=== PATIENT | male | born 1955 | race Caucasian/White ===

== ENCOUNTER 2023-12-14 10:07 | Outpatient (CLI) | payer MEDICARE ==
[2023-12-14] MEDS ORDERED: Iopamidol 370 76% 100 ML VIAL ONE (12:15)
== END 2023-12-14 10:08 | disposition home or self-care (01) ==
LOC: BICCT 10:07
PROVIDERS: ATTEND Internal Medicine Cardiovascular Disease
DX: I71.9 Aortic aneurysm of unspecified site, without rupture (principal); I44.0 Atrioventricular block, first degree; K57.30 Diverticulosis of large intestine without perforation or abscess without bleeding
CPT/HCPCS: 71275; 74175; 82565; Q9967